=== PATIENT | female | born 1985 | race Caucasian/White ===

== ENCOUNTER 2019-12-23 01:28 | Emergency (ER) | payer OTHER ==
[~2019-12-23] VITALS: Ht 165.1 cm; Wt 61.2 kg
--- NOTE | 2019-12-23 01:29 | NUR ---
PT AAOX4. AMBULATORY WITH STEADY GAIT. BIBRA C/O RLQ PAIN SINCE NOON, +N/V,+VAGINAL SPOTTING. PER PT SHE IS 7 WEEKS WITH TWINS. LAST LMP 11/03/19, G-2, P-0. PLACED IN GOWN, ON MONITOR, AND PULSE OX. PROVIDED WITH BLANKETS. AT BEDSIDE FOR EVLA. AWAITING EVAL AND ORDERS. WILL CONTINUE TO MONITOR.
--- NOTE | 2019-12-23 01:35 | NUR ---
LINE INITIATED LAC 20G, BLOOD DRAWN AND SENT TO LAB.
--- NOTE | 2019-12-23 01:45 | NUR ---
PT STARTED ON 1L NS AND GIVEN 4MG IVP ZOFRAN. PT DENIES PAIN.
[2019-12-23] MEDS ORDERED: ONDANSETRON HCL/PF 4 MG/2 ML VIAL ONE (01:51)
[2019-12-23 01:53] LABS: BASOPHILS % (AUTO) 0.3 % (0.0-2.0); EOSINOPHILS % (AUTO) 0.3 % (0.0-6.0); HEMATOCRIT 41 % (33-45); HEMOGLOBIN 14.1 g/dL (11.5-14.8); LYMPHOCYTES # (AUTO) 2.3 /CMM (0.8-4.8); LYMPHOCYTES % (AUTO) 18.6 % (20.0-44.0); MEAN CORPUSCULAR HGB CONC 35 g/dl (31.0-36.0); MEAN CORPUSCULAR VOLUME 91 fL (82-100); MONOCYTES # (AUTO) 0.6 /CMM (0.1-1.30); MONOCYTES % (AUTO) 4.7 % (2.0-12.0); NEUTROPHILS # (AUTO) 9.4 /CMM (1.8-8.9); NEUTROPHILS % (AUTO) 76.1 % (43.0-81.0); PLATELET COUNT (AUTO) 332 /CMM (150-450); RED BLOOD CELL COUNT(AUTO) 4.46 MIL/uL (4.0-5.2); WHITE BLOOD COUNT (AUTO) 12.3 K/uL (4.3-11.0)
[2019-12-23 02:00] LABS: CALCIUM, SERUM 9.7 mg/dL (8.5-10.1); CREATININE 0.7 mg/dL (0.6-1.3); POTASSIUM 3.2 mmol/L (3.5-5.1)
[2019-12-23] MEDS ORDERED: IV NS 0.9% 1,000 ML IV ONE (02:00)
[2019-12-23] MEDS ORDERED: ONDANSETRON HCL/PF - ER 4 MG/2 ML VIAL IV ONE (02:00)
[2019-12-23 02:28] LABS: ALBUMIN 4.5 g/dL (3.4-5.0); BILIRUBIN,DIRECT 0.2 mg/dL (0.0-0.2); BILIRUBIN,TOTAL 1.1 mg/dL (0.2-1.0); TOTAL PROTEIN, SERUM 8.7 g/dL (6.4-8.2)
--- NOTE | 2019-12-23 02:48 | NUR ---
US AT BEDSIDE
--- NOTE | 2019-12-23 03:11 | NUR ---
PT AMBUALTED TO THE RESTROOM TO PROVIDE URINE SAMPLE.
--- NOTE | 2019-12-23 03:15 | NUR ---
PROVIDED URINE SAMPLE. PT BACK IN BED ON MONITOR AND PULSE OX.
[2019-12-23 03:28] LABS: APPEARANCE,URINE CLEAR (CLEAR); BILIRUBIN,URINE NEGATIVE (NEGATIVE); BLOOD, URINE SMALL Ery/uL (NEGATIVE); COLOR,URINE YELLOW (YELLOW); KETONES,URINE >=80 (NEGATIVE); LEUKOCYTE ESTERASE ,URINE TRACE (NEGATIVE); NITRITE, URINE NEGATIVE (NEGATIVE); PROTEIN,URINE NEGATIVE (NEGATIVE); UGLUCOSE NEGATIVE (NEGATIVE); UROBILINOGEN,URINE 0.2 EU/dL (0.2)
[2019-12-23 03:51] LABS: BACTERIA,URINE None seen /HPF (None Seen); MUCUS,URINE Few /LPF (None Seen); SQUAMOUS EPITHELIAL CELL,UR Few /HPF (None Seen); WBC,URINE 0-2 /HPF (0-3)
[2019-12-23 05:35] VITALS: BP 121/71
--- NOTE | 2019-12-23 05:35 | NUR ---
IV removed. Catheter intact and site benign. Pressure and 4x4 applied to site. No bleeding noted.
--- NOTE | 2019-12-23 05:35 | NUR ---
Patient discharged to home in stable condition. Written and verbal after care instructions given. Patient verbalizes understanding of instruction. Pt ambulated with steady gait. Pt told to follow up with OB.
== END 2019-12-23 05:36 | disposition home or self-care (01) ==
LOC: ER 01:30
DX: O46.8X1 Other antepartum hemorrhage, first trimester (principal); Z3A.01 Less than 8 weeks gestation of pregnancy
CPT/HCPCS: 36415; 76805; 80048; 80076; 81001; 83690; 84702; 84703; 85025; 96374; 99284; J2405; J7030; 81000-TC